=== PATIENT | female | born 1995 | race Two or more races ===

== ENCOUNTER 2024-11-01 08:56 | Outpatient (OUT) | payer OTHER, SELFPAY ==
--- OUTSIDE RECORDS SUMMARY | 2024-08-15 09:00 | XMS_ITS ---
Author Organization [facility] in [place] Address [address] [place] [address] Care Team Providers Care Db2 Developer Name Role Phone Navi Cabello Primary Care Provider [phone] WallySirLexydrake Eugene [phone] Allergies Allergen (clinical drug ingredient) Drug/Non Drug Allergy documented on EMR Reaction Allergy Type Onset Date Status sulfamethoxazole / trimethoprim Bactrim hives Drug Allergy Active nitrofurantoin, macrocrystals / nitrofurantoin, monohydrate Macrobid Unknown Drug Allergy Active Vicodin Unknown Drug Allergy Active REASON FOR VISIT 2 WK F/UP, STACY CABELLO,CHRIS 05/16/24 Medications Medication SIG (Take, Route, Frequency, Duration) Notes Start Date End Date Status PEG 3350-KCl-Na Bicarb-NaCl 420 GM as directed Orally as directed for 2 04/18/2024 Not-Taking Dulcolax 5 MG 2 tablet as needed Orally as directed for 1 days 04/18/2024 Not-Taking Dicyclomine HCl 20 MG 1 tablet Orally Th ree times a day for 30 days 08/16/2024 Active Dicyclomine HCl 10 MG 1 capsule 30 minut es before eating Orally Three times a day for 30 days 02/21/2024 Not-Taking IBgard 90 MG as directed Orally o nce daily as needed for 30 days 08/15/2024 Active Social History Tobacco Use: Social History Observation Description Date Details (start date - stop date) Never Smoker NA - NA Tobacco Control (Standard) Question Answer Notes Tobacco use: Nonsmoker Vital Signs Weight 130.8 lbs 08/15/2024 Height 62 in 08/15/2024 Blood pressure systolic 116 mm Hg 08/16/19 25 Blood pressure diastolic 72 mm Hg 025 Temperature 98.4 degrees Fahrenheit 08/16/19 25 Heart Rate 95 /min 08/15/2024 BMI 23.92 kg/m2 08/15/2024 Oximetry 95 % 08/15/2024 Encounters Encounter Location Date Provider Diagnosis [facility] Jose Cruz [address] [address] 08/15/2024 Lexy Lo Right lower quadrant pain R10.31 ; Abnormal findings on diagnostic imaging of other parts of digestive tract R93.3 and 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 Increase Bentyl to 20mg TID. Will consider Xifaxan, Linzess, amitriptyline at follow up 08/15/2024 Abnormal findings on diagnostic imaging of other parts of digestive tract (ICD-10 - R93.3) Colonoscopy showed nonbleeding internal hemorrhoids and terminal ilium inflammation. VCE 07/27/2024 negative for IBD of small bowel Repeat colonoscopy in 2 to 3 years for follow-up on terminal ileum inflammation seen on biopsy.(04/2026-05/08 28) 08/15/2024 Acquired absence of other specified parts of digestive tract (ICD-10 - Z90.49) history of cholecystectomy in 2012 Plan Of Treatment Medication Medication Name Sig Start Date Stop Date Notes Dicyclomine HCl 20 MG 1 tablet Orally Th ree times a day for 30 days 08/16/2024 IBgard 90 MG as directed Orally o nce daily as needed for 30 days 08/15/2024 Treatment Notes Assessment Notes Right lower quadrant pain VCE 07/27/2024 negative for IBD of small bowel Will request records of CT abd/pelvis from [facility] Will start Ibgard. Increase Bentyl to 20mg TID. Will consider Xifaxan, Linzess, amitriptyline at follow up Abnormal findings on diagnos tic imaging of other parts of digestive tract Colonoscopy showed nonbleeding internal hemorrhoids and terminal ilium inflammation. VCE 07/27/2024 negative for IBD of small bowel Repeat colonoscopy in 2 to 3 years for follow-up on terminal ileum inflammation seen on biopsy.(04/2026-04/2027) Acquired absence of other sp ecified parts of digestive tract history of cholecystectomy in 2012 Next Appt Details Follow Up: 2 Months, Reason: Progress Notes * Zaki FRITZiDOB:1995 ( 28 yo F)Acc No.[id number]:08/15/2024 Established Patient: Briana DE LA VEGA Provider: NATALIA Bettencourt :1995 A ge:28 Y S ex:Female Date:08/15/2024 Address:[address] [place] [address], [address] [place], [place] [id number] Pcp:Navi Cabello Check In:12:55 PM ESTCheck O ut:01:20 PM EST Subjective: * Chief Complaints: * 1 . 2 WK F/UP, STACY CABELLO,GL 05/16/24. * HPI: G eneral: Interval history 08/15/2024: Patient is a pleasant 28 year old female who presents today for follow up 2 weeks s/p VCE. V CE 07/27/2024 negative for IBD of small bowel. Patient reports RLQ pain that occurs 1-2 times per week that can last for the whole day. Patient not taking dicyclomine, stating it did not help to releive the pain. Denies abdominal bloating. Patient describes pain as a sharp and twisting time pain. Denies improvement with defecation or eating. Patient uses heating pad to help relieve pain. Patient reports diarrhea if takes Miralax. Pelvic US today with FLIGHT ATTENDANT RAMP unremarkable. Plan: Will request records of CT abd/pelvis from [place] Will start Ibgard. Increase B entyl to 20mg TID. Follow up in 2 months. Will consider Xifaxan, Linzess, amitriptyline at follow up. * ROS: G eneral/Constitutional: Chills d enies. F atigue d enies. F ever d enies. N ight sweats d enies. W eight gain d enies. W eight loss d enies.? O phthalmologic: Jaundice d enies. G laucoma d enies. ? E NT: Difficulty swallowing d enies. H oarseness d enies.?Mouth Sores d enies. V oice change d enies. S ore throat d enies. ? C ardiovascular: Lower Extremity Edema d enies. C hest pain d enies.?Heart problems d enies. R espiratory: Cough d enies. G astrointestinal: Comments S [facility] for details. G enitourinary: Stool in urine d enies. M usculoskeletal: Joint pain d enies. J oint Swelling d enies. ? S kin: Rash d enies. H ematology: Anemia d enies. B leeding problems d enies. ? * Active Problem List Z90.49 Acquired absence of other specified parts of digestive tract Modified On:02/21/2024W/U Status:confirmed K29.50 Unspecified chronic gastritis without bleeding Modified On:06/01/2024W/U Status:confirmed K31.7 Polyp of stomach and duodenum Modified On:06/01/2024/U Status:confirmed * Medical History: M edical History Verified. * Surgical History: t umors removed from bilateral legs , exploratory surgery PERIODICALS CLERK , gall bladder , colon/egd 04/2024. * Hospitalization/Major Diagno stic Procedure: n aziza virus / urgent care 04/2024. * Family History: F ather: diagnosed with Diabetes mellitus without mention of complication, type II or unspecified type, not stated as uncontrolled. P aternal Grandmother: diagnosed with Diabetes mellitus without mention of complication, type II or unspecified type, not stated as uncontrolled. * Social History: T obacco Use: T obacco Control (Standard) T obacco use: N onsmoker. * Medications: N ot-Taking/PRN Dicyclomine HCl 10 MG Capsule 1 capsule 30 minutes before eating Orally Three times a day , Not-Taking/PRN Dulcolax(Bisacodyl) 5 MG Tablet Delayed Release 2 tablet as needed Orally as directed , Not-Taking/PRN PEG 3350-KCl-Na Bicarb-NaCl 420 GM Solution Reconstituted as directed Orally as directed , Medication List reviewed and reconciled with the patient * Allergies: M acrobid, Vicodin, Bactrim: hives. Objective: * Vitals: W t:130.8lbs, Ht: 62 in, BP:116/72mm Hg, Temp:98.4F, HR:95/min, BMI:23.92Index, Oxygen sat %:95%, Ht-cm: 157.48 cm, Wt-k.33 kg. * Examination: G eneral Examinations: GENERAL APPEARANCE: p leasant, well nourished, well developed, in no acute distress. EYES: E DEYSI, sclera non-icteric, no pallor. LUNGS: n o resp distress, clear to auscultation bilaterally, no wheezes,rales, or rhonchi. CHEST: n ormal shape and expansion. CARDIO: r egular rate and rhythm, no murmurs. ABDOMEN: s oft, nontender, nondistended, normal bowel sounds present, no hepatosplenomegaly, no masses palpable, no ascites. RECTAL: _ _. SKIN: w arm and dry, no rashes, no suspicious lesions. EXTREMITIES: n o edema. NEUROLOGIC: o riented to time, place, & person. ? Assessment: * Assessment: 1. R ight lower quadrant pain - R10.31 (Primary) 2 . A bnormal findings on diagnostic imaging of other parts of digestive tract - R93.3 3 . A cquired absence of other specified parts of digestive tract - Z90.49 Plan: * Treatment: 2. A bnormal findings on diagnostic imaging of other parts of digestive tract Notes: Colonoscopy showed nonbleeding internal hemorrhoids and terminal ilium inflammation. VCE 07/27/2024 negative for IBD of small bowel Repeat colonoscopy in 2 to 3 years for follow-up on terminal ileum inflammation seen on biopsy.(04/2026-04/2027) 3. A cquired absence of other specified parts of digestive tract Notes: history of cholecystectomy in 2012 * Follow Up: 2 Months * * Sign off status: Completed Visit Status: C HK (Check Out) true * Provider: NATALIA Bettencourt Date: 0 08/15/2024 Generated for Michelle salas/Tiffany/eTransmitting on: 0 11/01/2024 09:04 AM EDT History and Physical Notes * HPI (History of Present Illness) Category Sub-Category Detail Notes Category Not es General Interval history 08/15/2024: Patient is a pleasant 28 year old female who presents today for follow up 2 weeks s/p VCE. VCE 07/27/2024 negative for IBD of small bowel. Patient reports RLQ pain that occurs 1-2 times per week that can last for the whole day. Patient not taking dicyclomine, stating it did not help to releive the pain. Denies abdominal bloating. Patient describes pain as a sharp and twisting time pain. Denies improvement with defecation or eating. Patient uses heating pad to help relieve pain. Patient reports diarrhea if takes Miralax. Pelvic US today with FLIGHT ATTENDANT RAMP unremarkable. Plan: Will request records of CT abd/pelvis from [place] Will start Ibgard. Increase Bentyl to 20mg TID. Follow up in 2 months. Will consider Xifaxan, Linzess, amitriptyline at follow up. Examination Category Sub-Category Detail Notes Category Not es General Examinations GENERAL APPEARANCE: pleasan t, well nourished, well developed, in no acute distress EYES: EOMI, sclera non-ict marie, no pallor NECK: CARDIO: regular rate and rhy thm, no murmurs CHEST: normal shape and exp ansion LUNGS: no resp distress, cl ear to auscultation bilaterally, no wheezes,rales, or rhonchi ABDOMEN: soft, nontender, non distended, normal bowel sounds present, no hepatosplenomegaly, no masses palpable, no ascites NEUROLOGIC: oriented to time, pl kam, & person SKIN: warm and dry, no kayleen hes, no suspicious lesions EXTREMITIES: no edema LYMPH NODES: RECTAL: __ ORAL CAVITY:
--- OUTSIDE RECORDS SUMMARY | 2024-08-16 16:06 | XMS_ITS ---
Author Organization [facility] in [place] Address [address] [place] [address] Care Team Providers Care Director Of Email Marketing Name Role Phone Navi Recinos Primary Care Provider Khari Lewis [phone] REASON FOR VISIT medical records Encounters Encounter Location Date Provider Diagnosis [facility] [address] [place] [address] 08/16/2024 Khari Lewis Plan Of Treatment No Information Progress Notes * Zaki FRITZiDOB:1995 ( 28 yo F)Acc No.[id number]:08/16/2024 Patient: Destiny YARIELZaki LISAi :1995 A ge:28 Y S ex:Female Address:[address], [address], [place], [address] * true * Date: Generated for Michelle salas/Tiffany/eTransmitting on: 0 11/01/2024 09:04 AM EDT
--- OUTSIDE RECORDS SUMMARY | 2024-10-13 08:15 | XMS_ITS ---
Author Organization [facility] in [place] Address [address] [place] [address] Care Team Providers Care Soil Engineer Name Role Phone Navi Recinos Primary Care Provider [phone] Lexy Medina [phone] REASON FOR VISIT -2 Month Follow Up- Encounters Encounter Location Date Provider Diagnosis [facility] [address] [place] [address] 10/13/2024 Lexy Lo Plan Of Treatment No Information Progress Notes * Zaki FRITZiDOB:1995 ( 29 yo F)Acc No.[id number]:10/13/2024 UNLOCKED PROGRESS NOTE Established Patient: Briana DE LA VEGA Provider: NATALIA Bettencourt :1995 A ge:28 Y S ex:Female Date:10/13/2024 Address:[facility] [address] [facility] Pcp:Navi Recinos Subjective: * Chief Complaints: * 1 . -2 Month Follow Up-. * Medical History: Objective: * Vitals: Assessment: Plan: * Treatment: * * Electronic signature of NATALIA Hoff on 11/01/2024 at 09:05 AM EDT Sign off status: Pending Visit Status: R /S (Rescheduled) * Provider: NATALIA Bettencourt Date: 0 10/13/2024 Generated for Daisyi ng/Fachayog/eTransmitting on: 0 11/01/2024 09:05 AM EDT
--- OUTSIDE RECORDS SUMMARY | 2024-11-01 09:04 | XMS_ITS | Clinical Summary ---
Author Organization [facility] Address [facility] [place] [address] Care Team Providers Care Location And Measurement Technician Name Role Phone Yael Junior Primary Care Provider [phone] Allergies Active Allergy Reactions Criticality Noted Date Comments Esomeprazole Hives 07/25/2012 Hydrocodone-Acetaminophen Shortness Of Breath,Unknown High 12/06/2019 Nitrofurantoin Monohyd/M-Cryst Shortness Of Breath High 08/26/2022 Penicillins Rash Medium 11/03/2022 Medications sertraline (ZOLOFT) 50 MG tablet Take 1 (one) tablet (50 mg total) by mouth daily . Active Copper IUD (PARAGARD Intrauterine Copper) by Intrauterine route . 1 Active tiZANidine (ZANAFLEX) 2 MG tabletIndication s:Pelvic pain in female 1-2 tabs PO every 8 hours as needed . 30 tablet 4 Active Additional Information Patient not taking.Reported on 11/17/2023 linaCLOtide (LINZESS) 145 mcg capIndications:P elvic pain in female Take 1 (one) capsule (145 mcg total) by mouth daily . 30 capsule 2 4 Active Additional Information Patient not taking.Reported on 11/17/2023 tranexamic acid (LYSTEDA) 650 mg tabletIndication s:Abnormal uterine bleeding (AUB) Take 2 (two) tablets (1,300 mg total) by mouth 3 (three) times a day . 30 tablet 5 4 Active Additional Information Patient not taking.Reported on 11/17/2023 ibuprofen (ADVIL,MOTRIN) 600 MG tablet Take 1 (one) tablet (600 mg total) by mouth every 6 (six) hours as needed for pain . Active Active Problems Problem Noted Date Diagnosed Date Pelvic pain in female 07/27/2023 Overview (07/27/2023): Etiology unclear, but suspect musculoskeletal component. Pt will trial pyridium and zanaflex and rtc to discuss resutls Abnormal uterine bleeding (AUB) 07/27/2023 Overview (07/27/2023): Plan lysteda and high dose ibuprofen with periods. Discussed alternate to paraguard as well Vaginal discharge 07/27/2023 Overview (07/27/2023): Plan affirm c rx as necessary, but discussed vaginal acidification and probiotics Enlarged ovary 11/04/2022 Assessment & Plan (11/04/2022 11:18 AM EDT): Subacute problem, unclear prognosis Found on CT 10/14/22: enlargement of the left ovary with suggestion of an intermediate attenuation cystic component along its caudal aspect which may reflect an underlying hemorrhagic cyst Previous transvaginal US in Dec 2021 was normal Discussed further imaging with pelvic US with patient, she opted to continue to try osteopathic manipulitave therapy for her abdominal pain and see how it goes and if no improvement then will proceed with imaging Consider OBGYN referral Hematuria 11/03/2022 Assessment & Plan (11/03/2022 2:29 PM EDT): Acute problem, uncertain prognosis 11 RBC on last urinalysis, patient unsure if she was on her period or not Patient not on period today Repeat UA today Consider urology referral if persistent hematuria Anxiety 08/26/2022 Assessment & Plan (08/26/2022 7:09 PM EDT): Chronic Current regimen: zoloft 50mg Has been on it for 6 years since 2017 due to fear of going outside. Would like to see if she can come off as this has been well managed. Consider decreasing the dose to 25mg daily by cutting the medicine in half - continue for 2+ weeks to see if anxiety well controlled. Generalized abdominal pain 08/26/2022 Assessment & Plan (11/04/2022 11:23 AM EDT): Subacute problem, uncertain prognosis Ddx includes but not limited to MSK etiology, constipation, ovarian cyst, less likely anxiety Somatic dysfunction findings today of psoas and ribs Osteopathic manipulitave therapy performed today patient tolerated well Follow up in 2 weeks for further OMT Consider GI referral, Miralax course, Bentyl trial, OBGYN referral if symptoms persist Assessment & Plan (08/26/2022 7:08 PM EDT): Improving Unclear etiology - nephrolithiasis vs. Constipation vs. PID vs. Appendicitis No peritoneal sign, negative obturator, and negative psoas sign UA dipstick in office with trace blood - resent for UA with microsocpy CMP, hCG ordered Patient self-collected swab for GC/C/T CT kidney stone ordered Will rule out infectious etiology with urine culture, CBC History of kidney stones 08/26/2022 Overview (11/04/2022): Required lithoplasty 2013 and 2019, urethral stent placement 2013 PTH in 2020 WNL Assessment & Plan (11/04/2022 11:26 AM EDT): Chronic stable problem CT 10/14/22 showed punctate nonobstructing kidney stone in right kidney, unlikely causing her RLQ abdominal pain or the hematuria Hematuria on last urinalysis Repeat UA with urine culture PTH in 2020 was WNL Urology referral per patient request Assessment & Plan (08/26/2022 7:04 PM EDT): New to me Patient reports multiple episodes of kidney stones 2 requiring surgical intervention - 2013 and 2019 in Located [facility] [place] Was established with urology in [place]. Given patient's history of nephrolithiasis and symptom history, suspect kidney stone - possibly passed Immunizations Immunization Administration Dates Next Due Hep A, Unspecified 03/05/2010,12/15/2006 Hepatitis B 07/13/1994,1993,1993 Hib (PRP-T) 08/30/1995,07/13/1994,05/08/1994 ,02/23/1994 Influenza, Unspecified 01/28/2012,03/05/2010 MMR 09/29/1999,08/30/1995 Meningococcal, Unspecified 03/05/2010 Polio, Unspecified 02/23/1999 Tdap 12/15/2006 Family History Medical History Relation Comments Fibroids Mother Relation Status Comments Mother Social History Tobacco Use Types Packs/Day Years Used Date Smoking Tobacco: Never Passive Smoke Exposure: Never Smokeless Tobacco: Never Tobacco Cessation:Counseling Given: Not Answered Alcohol Use Standard Drinks/Week Comments Not Currently 0 (1 standard drink = 0.6 oz pur e alcohol) Comments Unknown Sex and Gender Information Value Date Recorded Sex Assigned at Not on file Legal Sex Female 4:11 PM EDT Gender Identity Female 07/27/2023 8:23 AM EDT Sexual Orientation Straight 07/27/2023 8: 23 AM EDT Occupation Industry Job Start Date Job End Date [employer] Not on file Not on file N ot on file Last Filed Vital Signs Vital Sign Reading Time Taken Comments Blood Pressure 103/69 12/14/2023 9:42 AM EDT Pulse 71 12/14/2023 9:42 AM EDT Temperature 36.6 C (97.8 F) 12/14/2023 9:42 AM EDT Respiratory Rate 18 12/14/2023 9:42 AM EDT Oxygen Saturation 99% 12/14/2023 9:42 AM EDT Inhaled Oxygen Concentration - - Weight 60.4 kg (133 lb 3.2 oz) 12/14/2023 9:42 A M EDT Height 157.5 cm (5' 2 ) 11/17/2023 9:04 AM EDT Body Mass Index 24.36 11/17/2023 9:04 AM EDT Plan of Treatment Health Maintenance Due Date Last Done Comments Wellness Visit 1996 Depression Screening/Follow-Up (PHQ-2/9) 2005 HIV Screening 2008 Hepatitis C Screening 10/24/2011 Pap Smear 2014 Tetanus: Every 10yrs 12/15/2016 12/15/2006 Cervical Cancer Screening 10/24/2023 HPV/Cotest 10/24/2023 COVID-19 Vaccine ( - 2023-2 5 season) 2023 Influenza Vaccine (#1) 2024 2, 03/05/2010 Pneumococcal Vaccine: Ped or At-Risk Aged Out No longer eligible b ased on patient's age to complete this topic Insurance [employer] Care Teams Location And Measurement Technician Relationship Specialty Start Date End Date Yael Junior DO [address] [place] [address] , [address] [place] [address] PCP - General 10/18/23
--- OUTSIDE RECORDS SUMMARY | 2024-11-01 09:04 | XMS_ITS | Clinical Summary ---
Author Organization [facility] Address [address] [place] [address] Care Team Providers Care Financial Consultant Name Role Phone Ramirez Francisco Primary Care Provider [phone] Allergies Active Allergy Reactions Criticality Noted Date Comments Esomeprazole Magnesium Hives 07/25/2012 Medications omeprazole (PRILOSEC) 20 mg oral tablet, enteric-coated take by mouth. Active Active Problems Problem Noted Date Diagnosed Date Benign neoplasm of skin 07/25/2012 Overview (01/17/2015): ICD-10 Transition Social History Tobacco Use Types Packs/Day Years Used Date Smoking Tobacco: Never Assessed Comments Unknown Sex and Gender Information Value Date Recorded Sex Assigned at Not on file Legal Sex Female 9:49 AM EST Gender Identity Not on file Sexual Orientation Not on file Last Filed Vital Signs Vital Sign Reading Time Taken Comments Blood Pressure - - Pulse - - Temperature - - Respiratory Rate - - Oxygen Saturation - - Inhaled Oxygen Concentration - - Weight 55.3 kg (121 lb 14.6 oz) 013 10:41 AM EDT Height - - Body Mass Index - - Plan of Treatment Health Maintenance Due Date Last Done Comments MMR Vaccine (1 of 1 - Standa rd series) 1994 DTaP/Tdap/Td Vaccine (1 - Tdap) 2000 Varicella Vaccine (1 of 2 - 13+ 2-dose series) 2006 Hepatitis B Vaccine (1 of 3 - 19+ 3-dose series) 2012 COVID-19 Vaccine (2023-2 5 season) 2023 Influenza Vaccine (#1) 2024 HIB Vaccine Aged Out No longer eligi ble based on patient's age to complete this topic HPV Vaccine Aged Out No longer eligi ble based on patient's age to complete this topic Hepatitis A Vaccine Aged Out No longe r eligible based on patient's age to complete this topic IPV Vaccine Aged Out No longer eligi ble based on patient's age to complete this topic Meningococcal ACWY Vaccine Aged Out N o longer eligible based on patient's age to complete this topic Meningococcal B Vaccine Aged Out No l onger eligible based on patient's age to complete this topic Pneumococcal Vaccine Aged Out No long er eligible based on patient's age to complete this topic RSV, Nirsevimab Immunization Aged Out No longer eligible based on patient's age to complete this topic Rotavirus Vaccine Aged Out No longer eligible based on patient's age to complete this topic Insurance [place] [id number] [place] [id number] Care Teams Financial Consultant Relationship Specialty Start Date End Date Francisco Guzmán [address] [place] [address] PCP - General 11/01/08
--- OUTSIDE RECORDS SUMMARY | 2024-11-01 09:04 | XMS_ITS | Encounter Summary ---
Author Organization [facility] Address [address] [place] [address] Care Team Providers Care Precision Agriculture Technician Name Role Phone Unallocated, Noms Provider Primary Care Provi geo Encounter Details Date Type Department Care Team ([facility] Contact Info) Description 10/26/2022 Abstract [facility] [address] [facility] [address] [place] [phone] Jeremy Bruno MD [address] [facility] [address] [place] [address] Social History Tobacco Use Types Packs/Day Years Used Date Smoking Tobacco: Never Smokeless Tobacco: Never Alcohol Use Standard Drinks/Week Comments Not Currently 0 (1 standard drink = 0.6 oz pur e alcohol) caffeine: 1-2 cups per day Comments Unknown Sex and Gender Information Value Date Recorded Sex Assigned at Not on file Legal Sex Female 7:36 PM EDT Gender Identity Not on file Sexual Orientation Not on file documented as of this encounter Plan of Treatment Upcoming Encounters Date Type Department Care Team (Late Contact Info) Description 05/02/2025 11:30 AM EST Office Visit [facility] [address] [facility] [address] [place] [phone] Jeremy Bruno MD [address] [facility] [address] [place] [address] documented as of this encounter Visit Diagnoses Not on filedocumented in this encounter Care Teams Precision Agriculture Technician Relationship Specialty Start Date End Date Unallocated, [place] [address] PCP - General Family Medicine 04/27/23 documented as of this encounter
--- OUTSIDE RECORDS SUMMARY | 2024-11-01 09:05 | XMS_ITS | Encounter Summary ---
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 Phone Francisco Guzmán Primary Care Provider [phone] Encounter Details Date Type Department Care Team (Late st Contact Info) Description 11/10/2005 Office Visit Neurology Clinic [facility] [address] [place] [id number] [facility], [facility] [address] [place] [id number] Social History Tobacco Use Types Packs/Day Years Used Date Smoking Tobacco: Never Assessed Comments Unknown Sex and Gender Information Value Date Recorded Sex Assigned at Not on file Legal Sex Female 9:49 AM EST Gender Identity Not on file Sexual Orientation Not on file documented as of this encounter Plan of Treatment Not on file documented as of this encounter Visit Diagnoses Not on filedocumented in this encounter Care Teams Cheese Factory Worker Relationship Specialty Start Date End Date Francisco Guzmán [address] [place] [address] PCP - General 11/01/08 documented as of this encounter
--- OUTSIDE RECORDS SUMMARY | 2024-11-01 09:05 | XMS_ITS | Patient Health Record ---
Author Organization [facility] [place] Address [address] [place] [address] Care Team Providers Care Long Lines Operator Name Role Phone Navi Recinos Primary Care Provider Provider, Lab Unavailable [phone] Provider, ASC Unavailable [phone] Provider, Radiology Unavailable [phone] Atsilvino Khari Unavailable [phone] Wally, Lexy Unavailable [phone] Divina Villanueva Unavailable [phone] Allergies Allergen (clinical drug ingredient) Drug/Non Drug Allergy documented on EMR Reaction Allergy Type Onset Date Status sulfamethoxazole / trimethoprim Bactrim hives Drug Allergy Active nitrofurantoin, macrocrystals / nitrofurantoin, monohydrate Macrobid Unknown Drug Allergy Active Vicodin Unknown Drug Allergy Active Results Component Value Reference Range Notes NUC MED Gastric Emptying Reviewed date:06/17/2024 06:07:18 PM Interpretation: Performing Lab: Notes/Report: [place] [address] [place] [address] Name: Catrina Warren : 1995 Gender: F Referring Provider: Divina Villanueva Exam: NUC MED - GASTRIC EMPTYING Exam Start: 06/15/2024 Accn: [id number] INDICATION/HISTORY: Nausea and vomiting. PROCEDURE: Solid-phase gastric emptying study. Following oral administration of a solid meal (2 eggs) labeled with 1.08 mCi Tc99m Sulfur Colloid, anterior and posterior imaging of the abdomen was performed immediately at 1 hour, 2 hours, 3 hours, and 4 hours. Regions of interest were then placed over the stomach and a gastric retention curve generated. COMPARISON: No exams were available for comparison. FINDINGS: Gastric retention at 1 hour is 73 percent, normal is between 37 and 90 percent. Gastric retention at 2 hours is 41 percent, normal is between 30 and 60 percent. Gastric retention at 4 hours is 10 percent, normal is between 0 and 10 percent. IMPRESSION: Normal gastric emptying study. Transcribed by: Susanna Miranda 06/15/2024 12:34 Sincerely, NISH MICHAEL MD Electronically Signed: 06/15/2024 13:05 Thank you for referring BRIANA LEOS to the [facility], [facility], [id number] [place] [address] Name: Catrina Warren : 1995 Gender: F Referring Provider: Divina Villanueva Exam: NUC MED - GASTRIC EMPTYING Exam Start: 06/15/19 Accn: [id number] __ INDICATION/HISTORY: Nausea and vomiting. PROCEDURE: Solid-pha se gastric emptying study. Following oral administration of a solid meal (2 eggs) labeled with 1.08 mCi Tc99m Sulfur Colloid, anterior and posterior imaging of the abdomen was performed immediately at 1 hour, 2 hours, 3 hours, and 4 hours. Regions of interest were then placed over the stomach and a gastric retention curve generated. COMPARISON: No exams were available for comparison. FINDINGS: Gastric retention at 1 hour is 73 percent, normal is between 37 and 90 percent. Gastric retention at 2 hours is 41 percent, normal is between 30 and 60 percent. Gastric retention at 4 hours is 10 percent, normal is between 0 and 10 percent. IMPRESSION: Normal gastric emptying study. Transcribed by: Susanna Miranda 06/15/2024 12:34 Sincerely, NISH MICHAEL MD Electronically Zeynep d: 06/15/2024 13:05 Thank you for referring BRIANA LEOS to the [facility], [facility]. CRP (C REACTIVE PROTEIN) EXT ENDED RANGE Reviewed date:07/06/2024 03:35:47 PM Interpretation: Performing Lab:[facility], [address] [place], [address] [phone] Notes/Report: FACILITY: [facility] PHY - LAB S [id number] CRP EXTENDED RANGE 1.46 (0.00 - 5.00) MG/L Surgical Path (TTC) Reviewed date:05/18/2024 09:14:44 AM Interpretation: Performing Lab:[facility], [address], [place], [address] PH:[phone] Notes/Report: Note: Fragments of fundic gland polyps. E. Received in formalin with two patient identifiers are multiple soft Report Electronically Signed Out is identified. or dysplasia is identified. Immunostaining for Helicobacter pylori organisms is negative (adequate intraepithelial neutrophils along the surface epithelium, including villi. The B. Esophagus, Distal Biopsy: submitted as received in one cassette. CHELSIE No dysplasia is identified. Fragments of benign stratified squamous epithelium larger fragment shows lamina propria neutrophils and neutrophils extending into submitted as received in one cassette. CHELSIE (Case signed 05/09/2024 at 15:20) Biopsied. patchy neutrophilic inflammation, see note. mucosa, which is gastric type with chronic inflammation. No intestinal chronic inflammation. Case #: [id number] F. Received in formalin with two patient identifiers are two soft fragments of cells, including parietal cells. Immunostaining for Helicobacter pylori use is recommended. abnormality. There is no significant inflammation or features to suggest pink-ortiz tissue aggregated to 0.4 x 0.2 x 0.2 cm. The entire specimen is F. Terminal Ileum, Biopsy: B. Sections (1 H&E stained slide, with levels) show fragments of glandular G. Colon, Random Biopsy: C. Stomach, Random Biopsy: A. Esophagus, Proximal Biopsy: mucosa, including Ulises's type glands. The villous architecture is intact. No Superficial fragments of terminal ileal mucosa fragments of pink-ortiz tissue aggregated to 0.3 x 0.2 x 0.2 cm. The entire identified (0 eosinophils in the high-powered crump Gross Description: identified. Mild chronic inactive gastritis. C. Stomach, Random Biopsy specimen is submitted as received in one cassette. CHELSIE abnormality. There is no significant inflammation or dysplasia identified. Specimen(s) Received: E. Duodenum, Biopsy injury) and raise consideration for drug-induced injury. Correlation with NSAID F. Sections (1 H&E stained slide, with levels) show superficial fragments of composed of a mixture of mucus and oxyntic type glands. There is mild chronic D. Received in formalin with two patient identifiers are two soft fragments of portions of gastric mucosa composed of mostly oxyntic type glands. Some of the Vomiting and abdominal pain in the right lower quadrant. fragments of pink-ortiz tissue aggregated to 0.4 x 0.2 x 0.2 cm. The entire fragments of pink-ortiz tissue aggregated to 0.6 x 0.3 x 0.2 cm. The entire Fragments of benign duodenal mucosa showing Final Diagnosis: No squamous mucosa is present for evaluation. Fragments of benign colonic mucosa showing E. Duodenum, Biopsy: Biopsied. A few gastric polyps. Resected and retrieved. Normal first portion of No intestinal metaplasia or dysplasia is identified. D. Sections (1 H&E stained slide, with levels) show fragments and polypoid E. Sections (1 H&E stained slide, including levels) show fragments of duodenal microscopic colitis, including no thickening of the subepithelial collagen layer Part F: The histologic findings show patchy neutrophilic inflammation (mucosal lower third of esophagus. Biopsied. Erythematous mucosa in the stomach. or increase in numbers of intraepithelial lymphocytes. There is no dysplasia specimen is submitted as received in one cassette. CHELSIE submitted as received in one cassette. CHELSIE Clinical Information: controls). C. Received in formalin with two patient identifiers are multiple soft organisms is negative (adequate controls). of the ileum was normal. Biopsied. The entire examined colon is normal. inflammation in the lamina propria consisting of lymphocytes and plasma cells. pink-ortiz tissue aggregated to 0.4 x 0.2 x 0.2 cm. The entire specimen is Lottie Olivier MD , Pathologist terminal ileal mucosa, including isolated villi. The deeper level show Fragments of glandular mucosa, gastric type with B. Esophagus, Distal Biopsy No significant inflammation or villous abnormality mucosa consisting of tubular shaped crypts without significant histopathologic No significant inflammation, microscopic colitis, Normal upper third of esophagus and middle third of esophagus. Biopsied. Normal of ortiz tissue aggregated to 0.5 x 0.2 x 0.1 cm. The entire specimen is G. Colon, Random Biopsy specimen is submitted as received in one cassette. CHELSIE A. Sections (1 H&E stained slide, including levels) show fragments of benign A. Received in formalin with two patient identifiers are multiple soft flecks stratified squamous epithelium showing no significant histopathologic F. Terminal Ileum, Biopsy G. Sections (1 H&E stained slide, including levels) show fragments of colonic gastric tubules show cystic dilatation and are lined by specialized epithelial no significant histopathologic abnormality. B. Received in formalin with two patient identifiers are multiple soft no significant histopathologic abnormality. Negative for Helicobacter pylori organisms. the duodenum and second portion of the duodenum. Biopsied. The examined portion No significant inflammation or dysplasia is identified. specimen is submitted as received in one cassette. CHELSIE few tubules. No dysplasia is identified. D. Stomach, Polyp(s): A. Esophagus, Proximal Biopsy examined). metaplasia or dysplasia is identified. showing no significant histopathologic abnormality. Microscopic Findings: Negative for Helicobacter pylori organisms. C. Sections (1 H&E stained slide, with levels) show fragments of gastric mucosa G. Received in formalin with two patient identifiers are multiple soft No histologic features of eosinophilic esophagitis significant inflammation is identified. D. Stomach, Polyp(s) fragments of pink-ortiz tissue aggregated to 0.8 x 0.5 x 0.2 cm. The entire CBC WITH DIFF Reviewed date:07/06/2024 03:35:59 PM Interpretation: Performing Lab:[facility], [address] [place], [address] Notes/Report: FACILITY: [facility] PHY - LAB S [id number] WBC 8.94 (3.80 - 10.60) x10^3ul RBC 4.07 (4.20 - 5.40) x10^6ul HEMOGLOBIN 11.9 (12.0 - 16.0) G/DL HEMATOCRIT 37.4 (37.0 - 47.0) % MCV 91.9 (81.0 - 99.0) fl MCH 29.2 (27.0 - 33.0) PG MCHC 31.8 (30.0 - 37.0) G/DL RDW-SD 43.8 (37.0 - 49.0) fl PLT 264 (130 - 400) x10^3ul NEUTROPHIL CT 5.37 (1.50 - 7.00) x10^3ul LYMPHOCYTE CT 2.51 (0.96 - 5.40) x10^3ul MONOCYTE CT 0.70 (0.10 - 0.90) x10^3ul EOSINOPHIL CT 0.23 (0.00 - 0.40) x10^3ul BASOPHIL CT 0.11 (0.00 - 0.16) x10^3ul IMMATURE GRAN CT 0.02 (0.00 - 0.11) x10^3ul SEGS 60.1 () % LYMPS 28.1 () % MONOS 7.8 () % EOSINOPHIL 2.6 () % BASOS 1.2 () % IMMATURE GRANS (IG) 0.2 () % CMP (COMP MET PALACIOS) w/eGFR CK D-EPI Reviewed date:07/06/2024 03:35:53 PM Interpretation: Performing Lab:[facility], [address] [place], [address] [phone] Notes/Report: FACILITY: [facility] PHY - LAB S [id number] GLUCOSE 84 (74 - 106) MG/DL BUN 25 (4 - 25) MG/DL CREATININE, BLOOD 0.65 (0.52 - 1.04) MG/DL GFR by CKD-EPI 121.4 (60.0) ML/M1.7 SODIUM 138 (137 - 145) MMOL/L POTASSIUM 4.4 (3.5 - 5.1) MMOL/L CHLORIDE 113 (98 - 107) MMOL/L CARBON DIOXIDE 21 (22 - 30) MMOL/L CALCIUM 9.5 (8.6 - 10.6) MG/DL ALBUMIN 4.2 (3.5 - 5.0) G/DL TOTAL PROTEIN 6.7 (6.3 - 8.2) G/DL ALK PHOS 55 (38 - 126) U/L ALT (SGPT) 10 (1 - 35) U/L AST (SGOT) 19 (15 - 46) U/L BILIRUBIN, TOT 0.6 (0.2 - 1.3) MG/DL T4 FREE and TSH Reviewed date:07/06/2024 03:35:49 PM Interpretation: Performing Lab:[facility], [address] [place], [place], [id number] Notes/Report: FACILITY: [facility] PHY - LAB S [id number] T4 - FREE 0.94 (0.78 - 2.35) UG/DL hTSH 0.988 (0.470 - 4.680) mIU/L FERRITIN Reviewed date:07/06/2024 03:40:17 PM Interpretation: Performing Lab:[facility], [address] [place], [place], [id number] Notes/Report: FACILITY: [facility] PHY - LAB S [id number] FERRITIN 14.6 (6.0 - 137.0) NG/ML Upper GI endoscopy Reviewed date:05/02/2024 01:43:59 PM Interpretation: Performing Lab: Notes/Report: Colonoscopy Reviewed date:05/02/2024 01:43:56 PM Interpretation: Performing Lab: Notes/Report: Reason For Referral Diagnosis 1 Vomiting (R11.10) Diagnosis 2 Right lower quadrant abdominal pain (R10.31) Referring Provider First Name Navi Referring Provider Last Name Grisel Referring Provider Speciality Family Med icine Referred Organization [facility] [place] Referred Provider Khari Lewis Referred Address [address] [place],[facility] [address],[place], [place],[address], Referred Provider Specialty Gastroentero logy General Notes Gypsy Mandujano 02/14 10:42:13 AM >scheduled Referral Priority Routine Reason please contact morris galan for an appt, Diagnosis 1 Right lower quadrant abdominal pain (R10.31) Diagnosis 2 Vomiting (R11.10) Referral Organization [facility] Referring Provider First Name Max Referring Provider Last Name Grisel Referring Provider Speciality Family Med icibeckie Referred Organization [facility] [place] Referred Provider Khari Lewis Referred Address [address] [address],[place], [place],[address],[place] Referred Provider Specialty Gastroentero logy Referral Priority Routine Medications Medication SIG (Take, Route, Frequency, Duration) [...] (Standard) Question Answer Notes Tobacco use: Nonsmoker AUDIT-C (Standard) Question Answer Notes Did you have a drink containing alcohol in the p ast year? 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 Vital Signs Heart Rate 95 /min 08/15/2024 Temperature 98.4 degrees Fahrenheit 08/15/2024 Blood pressure diastolic 72 mm Hg 08/15/2024 Oximetry 95 % 08/15/2024 Height 62 in 08/15/2024 Blood pressure systolic 116 mm Hg 08/15/2024 Weight 130.8 lbs 08/15/2024 BMI 23.92 kg/m2 08/15/2024 Encounters Encounter Location Date Provider Diagnosis [facility] [place] [address] [place] [address] 04/18/2024 Khair Lewis Radiology Main [place] [address] [place] [address] 06/02/2024 Divina Villanueva [facility] [address] [place] [address] 06/05/2024 Divina Villanueva Unspecified abdomina l pain R10.9 [facility] [address] [place] [address] 07/03/2024 Navi Recinos [facility] [address] [place] [address] 08/16/2024 [facility] [address] [place] [address] 05/02/2024 ASC Provider [facility] [address] [facility] [place] [address] 05/16/2024 Divina Villanueva Right lower quadrant pain R10.31 ; Nausea with vomiting, unspecified R11.2 ; Acquired absence of other specified parts of digestive tract Z90.49 and Abnormal findings on diagnostic imaging of other parts of digestive tract R93.3 [facility] [place] [address] [facility] [address] [place] [address] 08/15/2024 Lexy Kitz Right lower quadrant pain R10.31 ; Abnormal findings on diagnostic imaging of other parts of digestive tract R93.3 and Acquired absence of other specified parts of digestive tract Z90.49 [facility] [address] [place] [address] 07/06/2024 Max Grisel Hyperhidrosis L74.51 9 and [facility]headedness R42 [facility] [place] [address] [place] [address] 07/06/[address] [facility] [address] [place] [address] 02/15/2024 Max Grisel Vomiting R11.10 and Right lower quadrant abdominal pain R10.31 [facility] [address] [facility] [place] [address] 02/21/2024 Divina Villanueva Nausea with vomiting , unspecified R11.2 ; Right lower quadrant pain R10.31 and Acquired absence of other specified parts of digestive tract Z90.[address] [address] 06/15/2024 Radiology Provider Nausea with vomiting , unspecified R11.2 [facility] [address] [place] [address] 05/02/2024 Khari Lewis [facility] [address] [facility] [place] [address] 07/27/2024 Khari Lewis Assessments Encounter Date Diagnosis (ICD Code) Assessment Notes Treatment Notes Treatment Clinical Notes Section Notes 06/05/2024 Unspecified abdominal pain (ICD-10 - R10.9) 08/15/2024 Right lower quadrant pain (ICD-10 - R10.31) VCE 07/27/2024 negative for IBD of small bowel Will request records of CT abd/pelvis from [facility] Will start Ibgard. Increase Bentyl to 20mg TID. Will consider Xifaxan, Linzess, amitriptyline at follow up 08/15/2024 Abnormal findings on diagnostic imaging of other parts of digestive tract (ICD-10 - R93.3) Colonoscopy showed nonbleeding internal hemorrhoids and terminal ilium inflammation. VCE 07/27/2024 negative for IBD of small bowel Repeat colonoscopy in 2 to 3 years for follow-up on terminal ileum inflammation seen on biopsy.(04/2026-04/20 028) 06/15/2024 Nausea with vomiting, unspecified (ICD-10 - R11.2) 07/06/2024 Hyperhidrosis (ICD-10 - L74.519) Will perform broad lab workup for hyperhidrosis Upon further investigation it appears that patient has had menorrhagia for several months. For the past 6 weeks she has had intermittent bleeding. Before that her periods lasted 2 weeks at a time per month seeing gynecology next week regarding possible IUD removal and further management of menorrhagia 07/06/2024 Lightheadedness (ICD-10 - R42) Suspect due to iron-deficiency. Will evaluate further with lab draw 02/15/2024 Vomiting (ICD-10 - R11.10) Patient states that nausea/vomiting has improved significantly so she has not interested in Zofran at this time 02/15/2024 Right lower quadrant abdominal pain (ICD-10 - R10.31) unclear etiology. Physical exam is unremarkable will refer to GI for further evaluation and management 02/21/2024 Nausea with vomiting, unspecified (ICD-10 - R11.2) Will proceed with EGD due to nausea and vomiting. Will order gastric emptying study due to nausea and vomiting. 02/21/2024 Right lower quadrant pain (ICD-10 - R10.31) Will proceed with colonoscopy due to lower abdominal pain. Will order gastric emptying study due to nausea and vomiting. Will send script for dicyclomine 10 mg to be taken as needed for lower abdominal pain. 05/16/2024 Right lower quadrant pain (ICD-10 - R10.31) Will proceed with colonoscopy due to lower abdominal pain. Will order gastric emptying study due to nausea and vomiting. Will send script for dicyclomine 10 mg to be taken as needed for lower abdominal pain. 05/16/[address] abdomen and pelvis due to abdominal pain. Continue dicyclomine 10 mg TID PRN. Advised patient to take miralax daily 05/16/2024 Nausea with vomiting, unspecified (ICD-10 - R11.2) Will proceed with EGD due to nausea and vomiting. Will order gastric emptying study due to nausea and vomiting. 05/16/2024 EGD showed a few benign gastric polyps. Repeat EGD as needed. Proceed with gastric emptying study 02/21/2024 Acquired absence of other specified parts of digestive tract (ICD-10 - Z90.49) history of cholecystectomy in 201208/15/2024 Acquired absence of other specified parts of digestive tract (ICD-10 - Z90.49) history of cholecystectomy in 201205/16/2024 Acquired absence of other specified parts of digestive tract (ICD-10 - Z90.49) history of cholecystectomy in 201205/16/2024 Abnormal findings on diagnostic imaging of other parts of digestive tract (ICD-10 - R93.3) 05/16/2024 Colonoscopy showed nonbleeding internal hemorrhoids and terminal ilium inflammation. RRepeat colonoscopy in 2 to 3 years for follow-up on terminal ileum inflammation seen on biopsy.(04/2026-04/20 028) Will proceed with VCE to evaluate for Crohn's disease. Advised patient to avoid any NSAIDs. 02/15/2024 Other Plan Of Treatment Pending Test Test Name Order Date LIPASE 06/05/2024 CBC WITH DIFF 06/05/2024 CT Abdomen and Pelvis w/contrast * 05/16 IRON, TIBC w SAT AND FERRITIN 06/05/2024 VITAMIN B12 LEVEL AND FOLATE (FOLIC ACID ) 06/05/2024 CMP (COMP MET PALACIOS) w/eGFR CKD-EPI 2024 Insurance Providers Payer Name Payer Address Payer Phone Subscriber Number Group Number Insured Name Patient Relationship to Insured Coverage Start Date Coverage End Date [employer] [place] [employer] [address] [place] [address] [id number] Briana Leos Self - patient is the insured Medical (General) History Surgical History Surgery Date(Month/Year) gall bladder colon/egd 04/2024 tumors removed from bilateral legs exploratory surgery [employer] Hospitalization History Reason Date(Month/Year) noro virus / urgent care 04/2024
--- OUTSIDE RECORDS SUMMARY | 2024-11-01 09:05 | XMS_ITS | Encounter Summary ---
Author Organization [facility] Address [address] [place] [address] Care Team Providers Care Quality Assurance Test Program Manager Name Role Phone Francisco Guzmán Primary Care Provider [phone] Encounter Details Date Type Department Care Team (Late st Contact Info) Description 11/13/2005 Office Visit Cardiology Clinic [facility] [address] [facility] 2nd [place] [address] [facility] [address] [place] [address] Social History Tobacco Use Types Packs/Day Years [...] on filedocumented in this encounter Care Teams Quality Assurance Test Program Manager Relationship Specialty Start Date End Date Francisco Guzmán [address] [place] [address] PCP - General 11/01/08 documented as of this encounter
--- OUTSIDE RECORDS SUMMARY | 2024-11-01 09:05 | XMS_ITS | Clinical Summary ---
Author Organization [facility] Address [address] [place] [address] Care Team Providers Care Truck Driver Supervisor Name Role Phone Unallocated, Noms Provider MD Primary Care Provi geo Allergies Active Allergy Reactions Criticality Noted Date Comments Esomeprazole Hives Medium 07/25/2012 Hydrocodone 10/24/2021 Hydrocodone-Acetaminophen Unknown 10/26/2022 Nitrofurantoin Shortness of breath High 07/18/2022 Pt stated her throat closed up and had nausea. Penicillins Rash Medium 11/03/2022 Prednisone Unknown 04/27/2023 Medications PARAGARD INTRAUTERINE COPPER IU by Intrauterine route. Active Family History Medical History Relation Name Comments Diabetes Father Kidney nephrosis Father Endometriosis Mother Fibroids Mother Lung cancer Paternal Grandfather Diabetes Paternal Grandmother Relation Name Status Comments Father Alive Mother Alive Paternal Grandfather Paternal Grandmother Social History Tobacco Use Types Packs/Day Years Used Date Smoking Tobacco: Never Smokeless Tobacco: Never Tobacco Cessation:Counseling Given: Not Answered Alcohol Use Standard Drinks/Week Comments Not Currently 0 (1 standard drink = 0.6 oz pur e alcohol) caffeine: 1-2 cups per day Comments No Sex and Gender Information Value Date Recorded Sex Assigned at Not on file Legal Sex Female 7:36 PM EDT Gender Identity Not on file Sexual Orientation Not on file Last Filed Vital Signs Vital Sign Reading Time Taken Comments Blood Pressure 116/72 05/01/2024 11:42 AM EST Pulse - - Temperature - - Respiratory Rate - - Oxygen Saturation - - Inhaled Oxygen Concentration - - Weight 61.2 kg (135 lb) 05/01/2024 11:42 AM EST Height 157.5 cm (5' 2 ) 10/14/2021 12:00 PM EDT Body Mass Index 24.69 10/14/2021 12:00 PM EDT Plan of Treatment Upcoming Encounters Date Type Department Care Team (Late st Contact Info) Description 05/02/2025 11:30 AM EST Office Visit [facility] [address] [place] [address] Jeremy Bruno MD [address] [place] [address] Health Maintenance Due Date Last Done Comments HPV/Cotest 10/24/2023 03/17/2018 Influenza Vaccine (#1) 2024 01/28/2012, 2009 Cervical Cancer Screening 04/27/2026 Pap Smear 04/27/2026 04/27/2023, 11/02/2019, 10/17 Procedures Procedure Name Priority Date/Time Associated Diagnosis Comments THINPREP TIS PAP AND HPV MRNA E6/E7 WITH REFLEX TO HPV 16,18/45 Routine 04/27/2023 12:05 PM EST Cervical cancer screening Screening for HPV (human papillomavirus) Q - THINPREP(R) TIS AND HPV MRNA E6/E7 RFL HPV 16,18/45 Routine 03/17/2018 from Last 3 Months or Most Recently Relevant to Health Maintenance Results * THINPREP TIS PAP AND HPV MRNA E6/E7 WITH REFLEX TO HPV 16,18/45 (04/27/2023 12:05 PM EST) CLINICAL INFORMATION [facility] Comment:None given LMP [facility] Comment:NONE GIVEN PREV. PAP [facility] Comment:NONE GIVEN PREV. BX [facility] Comment:NONE GIVEN SOURCE [facility] Comment:None given STATEMENT OF ADEQUACY [facility] Comment: Satisfactory for evaluation. Endocervical/transformation zone component present. INTERPRETATION/RESU LT [facility] Comment: Cytology Results: Negative for intraepithelial lesion or malignancy. COMMENT [facility] Comment: This Pap test has been evaluated with computer assisted technology. UNDERWATER ROBOTICIST [facility] Comment: [facility], CT(ASCP) CT Screening Location: [place] [address] (ALWAYS MESSAGE) [facility] Comment: EXPLANATORY NOTE: The Pap is a screening test for cervical cancer. It is not a diagnostic test and is subject to false negative and false positive results. It is most reliable when a satisfactory sample, regularly obtained, is submitted with relevant clinical findings and history, and when the Pap result is evaluated along with historic and current clinical information. HPV MRNA E6/E7 Not Detected Not Detected [facility] Comment: Methodology: Cosmetology Educator-Mediated Amplification This assay detects E6/E7 viral messenger RNA (mRNA) from 14 high-risk HPV types (16,18,31,33,35,39,45,51,52,56,58,59,66,68). Cervical sources are required for HPV testing. If a vaginal source from a patient who has had a total hysterectomy with removal of cervix was submitted, please contact the testing laboratory for alternative testing options. For additional information, please refer to http://education.Whois/faq/TFR797y8 (This link if provided for information/ educational purposes only.) 04/27/2023 12:0 5 PM EST 04/28/2023 4:03 AM EST Narrative Resulting Agency Comment Performing Organization Information Site ID: [id number] Name: [facility] Address: [address] [place] [address], [address] [place] [id number] Director: Taurus Denis MD Jeremy Bruno MD LAB CYTOLOGY ORDERABLES Final Result [facility] * (ABNORMAL) Q - THINPREP(R) TIS AND HPV MRNA E6/E7 RFL HPV 16,18/45 (03/17/2018) RESULTS SEE NOTE(A) [facility] Comment: GYNECOLOGICAL CYTOLOGY REPORT THINPREP TIS PAP AND HPV mRNA, E6/E7 REFLEX HPV 16,18/45 Thinprep-TIS REPORT STATUS: FINAL CLINICAL INFORMATION: Information not provided SLIDES / SOURCE: 1 / Information not provided STATEMENT OF ADEQUACY: Satisfactory for evaluation. Endocervical/transformation zone component present. GENERAL CATEGORIZATION: EPITHELIAL CELL ABNORMALITY INTERPRETATION/RESULT: Atypical Squamous Cells of Undetermined Significance (ASC-US), rare. COMMENT: This Pap test has been evaluated with computer assisted technology. UNDERWATER ROBOTICIST: LESVIA VIDAL([facility]) For informational Purposes: All cytology specimens are processed and screened at [facility]. [address] [place] [id number] PATHOLOGIST: Suyapa Segundo M.D. Board Certified in Anatomic and Clinical Pathology (electronic signature) For questions regarding this report call Anatomic Pathology at [phone] The Pap is a screening test for cervical cancer. It is not a diagnostic test and is subject to false negative and false positive results. It is most reliable when a satisfactory sample, regularly obtained, is submitted with relevant clinical findings and history, and when the Pap result is evaluated along with historic and current clinical information. HPV mRNA E6/E7 RFX HPV 16, 18/45 HPV mRNA E6E7 Not Detected REFERENCE RANGE: NOT DETECTED This test was performed using the APTIMA HPV Assay ([employer] This assay detects E6/E7 viral messenger RNA (mRNA) from 14 high-risk HPV types (16,18,31,33,35,39,45,51,52,56,58,59,66,68). 03/17/2018 Jeremy Bruno MD [facility] Final Result [facility] from Last 3 Months or Most Recently Relevant to Health Maintenance Insurance [employer] Care Teams Truck Driver Supervisor Relationship Specialty Start Date End Date Unallocated, Noms Provider, [address] [place], [place] [id number] PCP - General Family Medicine 04/27/23
--- OUTSIDE RECORDS SUMMARY | 2024-11-01 09:05 | XMS_ITS | Clinical Summary ---
Author Organization [employer] tem Address [id number] [address] [place] [address] Care Team Providers Care Lead Performance Support Analyst Name Role Phone Navi Recinos Primary Care Provider [phone] Allergies Active Allergy Reactions Criticality Noted Date Comments Esomeprazole Hives Medium 07/25/2012 Hydrocodone 10/24/2021 Nitrofurantoin Monohyd/M-Cryst 02/24/2024 Nitrofurantoin Shortness Of Breath High 07/18/2022 Pt stated her throat closed up and had nausea. Penicillins Rash Medium 11/03/2022 Prednisone Other (See Comments) 04/27/2023 Other Reaction(s): Unknown Sulfamethoxazole-Trimeth oprim Hives 05/13/2024 Hydrocodone-Acetaminophe n 01/06/2017 Hydrocodone-Acetaminophe n Shortness Of Breath High 02/24/2024 Has tolerated morphine Medications ferrous sulfate 325 (65 FE) MG tablet Take 1 tablet (325 mg total) by mouth daily with breakfast. Active copper (PARAGARD T 380A) 380 square mm intrauterine device IUD 1 each by intrauterine route once. Active cyclobenzaprine (FLEXERIL) 10 mg tablet Take 1 tablet (10 mg total) by mouth 2 (two) times a day as needed for muscle spasms. 10 tablet 10/17/19 25 Active lidocaine (LIDODERM) 5 % Place 1 patch on the skin daily for 10 days. Remove & Discard patch within 12 hours or as directed by 10 patch 10/17/19 25 025 ciprofloxacin HCl (CIPRO) 500 mg tabletIndication s:Coccyx sprain, initial encounter Take 1 tablet (500 mg total) by mouth in the morning and 1 tablet (500 mg total) before bedtime. Do all this for 5 days. 10 tablet 10/21/19 25 025 Active Problems Problem Noted Date Diagnosed Date Syncope 01/08/2017 Encounters Date Type Department Care Team Description 10/16/2024 7:45 AM EDT - 10/16/2024 9:16 AM EDT [facility] -Emergency Department [address] [facility] [address] Andres, DO John Coccyx sprain, initial encounter (Primary Dx); Urinary tract infection without hematuria, site unspecified Discharge Disposition: Home 10/16/2024 Travel 09/20/2024 Travel 08/30/2024 1:45 PM EDT Office Visit [facility] [address] [facility] [address] [place] [address] Leonor Pompa APRN-CNM Abscess of right genital labia (Primary Dx) 08/30/2024 Travel 08/22/2024 Travel 08/15/2024 10:45 AM EDT Office Visit [facility] [address] [facility] [address] [place] [phone] Johan Rae MD Right lower quadrant abdominal pain (Primary Dx); Right-sided abdominal pain of unknown etiology 08/15/2024 Travel from Last 3 Months Family History Medical History Relation Name Comments COPD Father Cancer Father skin Diabetes Father Eczema Father Nephrolithiasis Father Anxiety disorder Mother Depression Mother Fibroids Mother Migraines Mother Breast cancer Neg Hx Colon cancer Neg Hx Ovarian cancer Neg Hx Relation Name Status Comments Father Mother Social History Tobacco Use Types Packs/Day Years Used Date Smoking Tobacco: Never Smokeless Tobacco: Never Tobacco Cessation:Counseling Given: Not Answered Alcohol Use Standard Drinks/Week Comments Never 0 (1 standard drink = 0.6 oz pur e alcohol) Childcare Answer Date Recorded Childcare Unknown 09/29/2018 Employment Answer Date Recorded Employment Unknown 09/29/2018 Hunger Screening Answer Date Recorded Within the past 12 months we worried whether our food would run out before we got money to buy more. Never True 10/16/2024 Within the past 12 months th e food we bought just didn't last and we didn't have money to get more. Never True 10/16/2024 Purpose - Life Answer Date Recorded Purpose and direction in life Unknown Comments No Sex and Gender Information Value Date Recorded Sex Assigned at Not on file Legal Sex Female 8:33 AM EDT Gender Identity Not on file Sexual Orientation Not on file Last Filed Vital Signs Vital Sign Reading Time Taken Comments Blood Pressure 106/59 10/16/2024 7:50 AM EDT Pulse 91 10/16/2024 7:50 AM EDT Temperature 36.7 C (98.1 F) 10/16/2024 7:50 AM EDT Respiratory Rate 16 10/16/2024 7:50 AM EDT Oxygen Saturation 97% 10/16/2024 7:50 AM EDT Inhaled Oxygen Concentration - - Weight 56.7 kg (125 lb) 10/16/2024 7:50 AM EDT Height 157.5 cm (5' 2 ) 10/16/2024 7:50 AM EDT Body Mass Index 22.86 10/16/2024 7:50 AM EDT Plan of Treatment Health Maintenance Due Date Last Done Comments Depression Screening 2005 DTaP,Tdap and Td Vaccines (7 - Td or Tdap) 12/15/2016 12/15/2006, 09/29/1999, 02/23/1999, Additional history exists Influenza Vaccine 12/18/2024 01/28/2012, 03/05/2010 Tobacco Screening 08/30/2025 08/30/2024 Adult BMI Screening 10/16/2025 10/16/2024 Pap Smear 07/12/2027 07/11/2024, 07/11/2024 Medical Devices Not on file Procedures Procedure Name Priority Date/Time Associated Diagnosis Comments XR SACRUM COCCYX MIN 2 VWS STAT 10/16/2024 8:52 AM EDT POCT , URINE (NUCG) Routine 10/16/2024 8:17 AM EDT POCT NURSING URINE MACROSCOPIC UA Routine 10/16/2024 8:11 AM EDT ER EXTRA URINE CULTURE STAT 10/16/2024 8:00 AM EDT ER EXTRA URINE STAT 10/16/2024 8:00 AM EDT URINE CULTURE STAT 10/16/2024 8:00 AM EDT US TRANSVAGINAL NON OB Routine 08/15/2024 10:19 AM EDT Chronic pelvic pain in female Abnormal uterine bleeding HIGH RISK HPV W/MEERA Routine 07/11/2024 4:18 AM EDT Cervical cancer screening from Last 3 Months or Most Recently Relevant to Health Maintenance Results * X-ray sacrum coccyx minimum 2 views (10/16/2024 8:52 AM EDT) Anatomical Region Laterality Modality MSK, Lower Extremities N/A Computed Radiography 10/16/2024 8:55 AM EDT Narrative 10/16/2024 8:56 AM EDT CLINICAL INFORMATION: fall, concern for sacral or coccyx fracture TECHNIQUE/PROCEDURE: 3 views of the sacrum/coccyx COMPARISON: CT pelvis 03/05/2024 FINDINGS: Arcuate lines are intact. IUD projects over the pelvis. No sacroiliac widening or sclerosis. No widening of the pubic symphysis. No osseous lesions or pelvic fractures are identified. Unchanged angulation of the coccyx compared to prior CT pelvis.. No fracture lines are identified. IMPRESSION: No radiographic evidence of sacral or coccygeal fracture. Finalized by Armaan Barth MD on 10/16/2024 8:56 AM Procedure Note Armaan Barth MD - 10/16/2024 CLINICAL INFORMATION: fall, concern for sacral or coccyx fracture TECHNIQUE/PROCEDURE: 3 views of the sacrum/coccyx COMPARISON: CT pelvis 03/05/2024 FINDINGS: Arcuate lines are intact. IUD projects over the pelvis. No sacroiliacwidening or sclerosis. No widening of the pubic symphysis. No osseouslesions or pelvic fractures are identified. Unchanged angulation of thecoccyx compared to prior CT pelvis.. No fracture lines are identified. IMPRESSION: No radiographic evidence of sacral or coccygeal fracture. Finalized by Armaan Barth MD on 10/16/2024 8:56 AM [facility] DO IMG DIAGNOSTIC IMAGING ORDERABLE S Final Result * POCT , urine (10/16/2024 8:17 AM EDT) POC Urine Negative Negative, Indeterminate 10/16/2024 8:12 AM T [facility] Urine 10/16/2024 8:17 AM EDT 10/16/2024 8:12 AM EDT [facility] DO POINT OF CARE TEST ORDERABLES Fi nal Result [facility] [address] [place] [address], * (ABNORMAL) POCT Nursing Urine Macroscopic UA (10/16/2024 8:11 AM EDT) POC Urine Specific [place] 1.025 1.010, 1.015, 1.020, 1.025 10/16/2024 8:08 AM [facility] POC Urine Leukocyte Esterase Large(A) Negative 10/16/2024 8:08 AM [facility] POC Urine Nitrite Negative Negative 10/16/2024 8:08 AM [facility] POC Urine pH 6.0 5.0, 6.0, 6.5, 7.0, 7.5, 8.0, 8.5, 5.5 10/16/2024 8:08 AM [facility] POC Urine Protein Trace(A) Negative 10/16/2024 8:08 AM [facility] Urine Glucose Negative Negative 10/16/2024 8:08 AM [facility] Urine Ketones Negative Negative 10/16/2024 8:08 AM [facility] POC Urine Urobilinogen 0.2 E.U./dL 10/16/2024 8:08 AM EDT [facility] POC Urine Bilirubin Negative Negative 10/16/2024 8:08 AM EDT [facility] POC Urine Blood/HGB Trace(A) Negative 10/16/2024 8:08 AM EDT [facility] Urine 10/16/2024 8:11 AM EDT 10/16/2024 8:08 AM EDT [facility] DO POINT OF CARE TEST ORDERABLES Fi nal Result Performing Organization Address [facility]/State/ZIP Co de Phone Number [address] [place] [address], [place] * Extra Urine Culture (10/16/2024 8:00 AM EDT) Extra Tube Auto Resulted 10/16/2024 9:01 AM EDT [facility] Urine Urine specimen collection, clean catch / Unknown 10/16/2024 8:00 AM EDT 10/16/2024 8:09 AM EDT [facility] DO URINE ORDERABLES Final Result Performing Organization Address [facility] Co de Phone Number [address] [place] [address], [place] * Extra Urine (10/16/2024 8:00 AM EDT) Extra Tube Auto Resulted 10/16/2024 9:01 AM EDT [facility] Urine Urine specimen collection, clean catch / Unknown 10/16/2024 8:00 AM EDT 10/16/2024 8:09 AM EDT [facility] DO URINE ORDERABLES Final Result Performing Organization Address [facility] Co de Phone Number [address] [place] [address], [place] * (ABNORMAL) Urine Culture Urine, Clean Catch Midstream (10/16/2024 8:00 AM EDT) CULTURE RESULTS >100,000 CFU/mL Escherichia coli(A) 10/18/2024 8:03 PM EDT [facility] Urine Urine specimen collection, clean catch / Unknown 10/16/2024 8:00 AM EDT 10/16/2024 8:09 AM EDT Narrative [facility] - 10/18/2024 8:03 PM EDT Along with <10,000 CFU/mL Normal Urogenital Grace. Organism Antibiotic Method Susceptibility Escherichia coli Ampicillin >=32.0: Resistant Escherichia coli AMP/SULBACTAM >=32.0: Resistant Escherichia coli PIPERACIL/TAZOBACTAM <=4.0: Susceptible Escherichia coli Cefazolin (non-urinary) >=32.0: Resistant Escherichia coli Cefazolin (urinary) >=32.0: Resistant Escherichia coli Cefepime <=0.12: Susceptible Escherichia coli Ceftriaxone 32: Resistant Escherichia coli Gentamicin <=1.0: Susceptible Escherichia coli Ciprofloxacin <=0.06: Susceptible Escherichia coli Levofloxacin <=0.12: Susceptible Escherichia coli Nitrofurantoin <=16.0: Susceptible Escherichia coli Trimethoprim + Sulfamethoxazole <=1.0: Susceptible [facility] Campos DO MICROBIOLOGY - GENERAL ORDERABLE S Final Result [facility] [address] [place] [address], [place] [phone] * US TRANSVAGINAL NON OB (08/15/2024 10:19 AM EDT) Anatomical Region Laterality Modality AMB Ultrasound Study GA Study Date Study JANET Working JANET (Source) 08/15/2024 Fetus A Measurements Value GA (days) CRL Sac Diameter Narrative 08/17/2024 1:36 PM EDT Uterus is retroverted. Endometrium is 0.71cm. IUD is seen in proper position in central endometrial cavity in mid to high uterus. Ovaries are unremarkable. No free fluid. us Leonor Pompa LATHE SET UP OPERATOR-CNM IMG US ORDERABLES Final Result * High risk HPV w/meera (07/11/2024 4:18 AM EDT) Hpv specimen type ThinPrep 07/12/2024 4:18 AM EDT [facility] Hpv 16 Negative Negative^N egative 07/12/2024 2:22 PM EDT [facility] Hpv 18 Negative Negative^N egative 07/12/2024 2:22 PM EDT [facility] Other high risk hpv Negative Negative^N egative 07/12/2024 2:22 PM EDT [facility] Comment: HPV types 31,33,35,39,45,52,56,58,59,66 and 68 DNA were undetectable. THINP 07/11/2024 4:18 AM EDT 07/11/2024 4:27 AM EDT us Leonor Pompa LATHE SET UP OPERATOR-CNM LAB BLOOD ORDERABLES Fi nal Result [facility] [address] [facility] [place] [address] from Last 3 Months or Most Recently Relevant to Health Maintenance Insurance [employer] Care Teams Lead Performance Support Analyst Relationship Specialty Start Date End Date Navi Recinos DO Majo Blair [address] [place] [address] PCP - General Family Medicine 08/30/24
== END 2024-11-01 08:57 | disposition home or self-care (01) ==
LOC: PST 09:02
PROVIDERS: Visit Provider Urology
DX: Z01.818 Encounter for other preprocedural examination (principal); N35.92 Unspecified urethral stricture, female

== ENCOUNTER 2024-11-07 07:28 | Day surgery (SDC) | payer OTHER, SELFPAY ==
[2024-11-01 09:26] VITALS: BP 112/73; PULSE 77; TEMP 36.4; O2SAT 97; BMI 24.3
[2024-11-07 07:35] VITALS: BP 117/69; PULSE 76; TEMP 36.4; O2SAT 99; BMI 24.2
[2024-11-07] MEDS: CIPROFLOXACIN 400 MG/200 ML D5W PREMIX 200 MG IV (09:28)
[2024-11-07] MEDS: LIDOCAINE 2% JELLY 10 ML UR (09:39)
--- NOTE | 2024-11-07 09:44 | PM.URSON ---
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 Urethral dilation with [place] sounds from 20 Bulgarian to 32 Bulgarian Anesthesia: MAC and local Primary Surgeon: Tl Rivas Complications: None Estimated blood loss (mL): 0 Findings: Tight urethra Specimens: None Indications for Procedures: This lady has urethral stenosis and recurrent UTIs. We attempted to dilate her in the office but could only get to 20 Bulgarian before she was experiencing severe pain. She now presents for urethral dilation under MAC anesthesia. She has signed an informed consent after risks were explained. Detailed description of Procedure: The patient was brought to the operating room and placed on the operating room table in the supine position. Timeout was done by all parties in the room. We all agreed upon the patient's identification and the planned procedures for this patient. MAC anesthesia was administered. She was then repositioned into the modified dorsolithotomy position. All pressure points were satisfactorily padded. Genitalia were sterilely prepped and draped in the usual fashion. 2% lidocaine gel was passed per urethra. I then started by passing a 20 Bulgarian Radha sound per urethra. I sequentially increased the sounds up to a max of 32 Bulgarian. The procedure was then terminated. She was then transferred to a [facility] bed and wheeled to PACU in stable condition.
[2024-11-07 09:50] VITALS: BP 103/62; PULSE 66; TEMP 36.6; O2SAT 99
[2024-11-07 10:05] VITALS: BP 98/59; PULSE 51; O2SAT 100
[2024-11-07 10:20] VITALS: BP 91/54; PULSE 49; O2SAT 100
[2024-11-07 10:35] VITALS: BP 96/57; PULSE 49; O2SAT 100
[2024-11-07 11:02] VITALS: BP 121/69; PULSE 58; TEMP 36.4; O2SAT 100
== END 2024-11-07 11:02 | disposition home or self-care (01) ==
PROVIDERS: Visit Provider Urology
PROC: (CPT 910; principal; 2024-11-07 09:00)
DX: N35.92 Unspecified urethral stricture, female (principal); Z87.440 Personal history of urinary (tract) infections; Z87.442 Personal history of urinary calculi; K21.9 Gastro-esophageal reflux disease without esophagitis; Z90.49 Acquired absence of other specified parts of digestive tract; F41.9 Anxiety disorder, unspecified
CPT/HCPCS: 53660; 36415; 84703; J0744; J1100; J2250; J2405; J2704; J3010